=== PATIENT | female | born 1985 | race Caucasian/White ===

== ENCOUNTER 2017-02-22 12:49 | Emergency (ER) ==
[2017-02-22 12:52] VITALS: BP 123/74; TEMP 98.5; BMI 35.4
[2017-02-22] MEDS ORDERED: TORADOL IM STA (13:22)
--- NOTE | 2017-02-22 13:51 | DI ---
EXAM: Left elbow; AP, lateral, and oblique views HISTORY: Trauma COMPARISON: Forearm radiographs from same day. FINDINGS: An interarticular minimally-displaced fracture of the radial head is present. No evidence of dislocation is seen. No sizable elbow joint effusion is seen. Soft tissues appear unremarkable . OPINION: Minimally-displaced interarticular radial head fracture.
--- NOTE | 2017-02-22 13:52 | DI ---
EXAM: Two views of the left forearm. HISTORY: Trauma COMPARISON: Elbow radiographs from same day. FINDINGS: An interarticular minimally-displaced fracture of the radial head is present. No evidence of dislocation is seen. No sizable elbow joint effusion is seen. Soft tissues appear unremarkable . OPINION: Minimally-displaced interarticular radial head fracture.
--- NOTE | 2017-02-22 13:53 | DI ---
EXAM: Left wrist; PA, lateral, and oblique views HISTORY: Trauma. COMPARISON: For radiographs from same day. FINDINGS: There is no acute fracture or dislocation. Joint spaces and alignment are maintained. Soft tissues are unremarkable. OPINION: No acute osseous abnormality of the wrist.
[2017-02-22] MEDS ORDERED: LIDOCAINE 1 % AMP 5 ML (SUTURES) SQ STA (14:38)
--- NOTE | 2017-02-22 15:38 | ED.PDOC ---
General ED Provider: Dr. AJIT FERRARO Chief Complaint: Fall Stated Complaint: Patient is a 31 year old who state that she tripped over pole and fell landed on left elbow, while in the Er she noticed that she had a splinter on her left buttock. Time Seen by Physician: 12:55 Mode of Arrival: Walk-In Information Source: Patient Exam Limitations: No limitations Primary Care Provider: ROLANDO GUIDO Nursing and Triage Documentation Reviewed and Agree: Yes Trauma/Injury Complaint Exam - Trauma Complaint/Exam Location of Pain or Injury: Reports: LUE, Other (buttocks ) Mechanism of Injury: Reports: Fall Onset/Duration: 1 hour Symptoms Are: Still present Timing of Treatment: Immediate Initial Severity: Severe Current Severity: Severe Character: Reports: Dull, Aching Aggravating: Reports: Movement Alleviating: Reports: Rest Associated Signs and Symptoms: Denies: LOC, Confusion, Memory loss, Lethargy, Vomiting, Bleeding, Bruising, Swelling, Extremity disuse, Painful respiration, Hoarseness, Dysphagia, Hemoptysis, Significant blood loss Related History: Denies: Similar episode, Occupational injury : No Penetrating Injury Risk Factors: Reports: None Nexus Low Risk Criteria: No post-midline CS tender, No evidence of intoxicat., No Altered LOC, No focal neuro deficit, No distracting injuries Compartment Syndrome Risk Factors: Present: Pain Trauma Findings: Present: Limited ROM (left elbow ). Absent: [place] eyes, Hemotympanum, Nasal deformity, Dental tenderness Skin Findings: Present: Tenderness Differential Diagnoses: Abrasion, Contusions, Fracture, Sprain, Strain Body Picture: 1 - tenderness to palpation 2 - Long 2 cm splinter well embeded in the flesh. Review of Systems - Review Of Systems Constitutional: Reports: No symptoms Eyes: Reports: No symptoms Ears, Nose, Mouth, Throat: Reports: No symptoms Respiratory: Reports: No symptoms Cardiac: Reports: No symptoms GI: Reports: No symptoms : Reports: No symptoms Musculoskeletal: Reports: Joint pain (left elbow) Skin: Reports: Bruising (left buttock ) Neurological: Reports: Anxiety Endocrine: Reports: No symptoms Hematologic/Lymphatic: Reports: No symptoms All Other Systems: Reviewed and Negative Past Medical History - Past Medical History Endocrine: Reports: Hypothyroid Cardiovascular: Reports: None Respiratory: Reports: None Hematological: Reports: None Gastrointestinal: Reports: None Genitourinary: Reports: None Neuro/Psych: Reports: Anxiety, Depression Musculoskeletal: Reports: None Cancer: Reports: None Last Menstrual Period: doesnt have - Surgical History General Surgical History: Reports: Tonsillectomy - Family History Family History: Reports: Unknown - Social History Smoking Status: Current every day smoker Hx Substance Use: No Alcohol Screening: None Physical Exam - Physical Exam Appearance: Ill-appearing, Obese Ill-appearing: Mild Pain Distress: Severe Eyes: LUCERO, EOMI, Conjunctiva clear Neck: Supple Respiratory: Airway patent, Breath sounds clear, Breath sounds equal, Respirations nonlabored Cardiovascular: RRR, Pulses normal, No rub, No murmur GI/: Soft, Nontender, No masses, Bowel sounds normal, No Organomegaly Musculoskeletal: ROM intact, No edema, No calf tenderness, Limited ROM Skin: Warm, Dry, Normal color Neurological: Sensation intact, Motor intact, Reflexes intact, Cranial nerves intact, Alert, Oriented Psychiatric: Anxious Interpretation - Radiology Interpretation Radiology Interpretation By: ED Physician Radiology Results: Positive Exam Interpreted: Other (non displaced fracture of radial head. ) Radiology Interpretation By: Radiologist Radiology Results: Negative Exam Interpreted: Other (Hip, no obvious foreign body ) Procedures - Foreign Body Removal Location of Foreign Object: Left buttock Foreign Object: 6 cm Depth of Object: 4 cm Type of Anesthesia: Local Medication Used: Yes: Lidocaine Prep: Betadine Irrigation: Yes Skin Incised: Yes Instruments Used: Yes: Forceps Foreign Body Identified and Removed: Yes (wooden splinter. ) Critical Care Note - Critical Care Note Total Time (mins): 0 Course - Course Orders, Labs, Meds: Orders Category Date Time Status Ketorolac Tromethamine [Toradol] MEDS 02/22/17 13:22 Discontinued 60 mg IM ONCE STA Lidocaine HCl/Pf [Lidocaine 1 % Amp 5 ml (Sutures)] MEDS 02/22/17 14:38 Discontinued 5 ml SQ ONCE STA ELBOW, LEFT MIN 3 VIEWS Stat RADS 02/22/17 13:22 Completed FOREARM, LEFT 2 VIEWS Stat RADS 02/22/17 13:22 Completed PELVIS 1 OR 2 VIEWS Stat RADS 02/22/17 14:38 Taken WRIST, LEFT 3 VIEWS Stat RADS 02/22/17 13:22 Completed Medications Discontinued Medications Generic Name Dose Route Start Last Admin Trade Name Freq PRN Reason Stop Dose Admin Ketorolac Tromethamine 60 mg 02/22/17 13:22 02/22/17 13:44 Toradol IM 02/22/17 13:23 60 mg ONCE STA Administration Lidocaine HCl 5 ml 02/22/17 14:38 02/22/17 15:30 Lidocaine 1 % Amp 5 Ml (Sutures) SQ 02/22/17 14:39 5 ml ONCE STA Administration Vital Signs: Temp Pulse Resp BP Pulse Ox 02/22/17 12:49 98.5 F 95 H 18 123/74 97 Departure - Departure Time of Disposition: 15:38 Disposition: HOME SELF-CARE Discharge Problem: Foreign body (FB) in soft tissue Radial head fracture, closed Qualifiers: Encounter type: initial encounter Fracture alignment: displaced Laterality: left Qualifier Code: (S52.122A) Displaced fracture of head of left radius, initial encounter for closed fracture Instructions: Soft Tissue Foreign Body (ED), Elbow Fracture (ED) Condition: Fair Pt referred to PMD for follow-up: Yes Additional Instructions: Continue home medications Follow up with Orthopedics in 2 days Allergies/Adverse Reactions: Allergies No Known Allergies Allergy (Verified 02/22/17 12:52) Home Medications: Ambulatory Orders Albuterol Sulfate 0.042% Neb [Albuterol 0.042% Neb] 1 vial IH Q2-6H PRN Alprazolam [Xanax] 0.5 mg PO QID 03/20/13 Fluoxetine HCl [Prozac] 40 mg PO DAILY 03/20/13 Hydrocodone Bit/Acetaminophen [[place] 5-325] 1 each PO TID PRN 02/22/17 Disposition Discussed With: Patient
--- NOTE | 2017-02-22 18:12 | DI ---
EXAM: Two views of the pelvis. History: Foreign body of buttocks. Findings / impression: No acute fracture or dislocation. Joint spaces are relatively preserved. N o distinct radiopaque foreign bodies are seen within the region of interest. Nonspecific pelvic florentin cifications are probably phleboliths.
== END 2017-02-22 16:07 | disposition home or self-care (01) ==
LOC: ED 12:49
DX: M79.5 Residual foreign body in soft tissue (principal); S52.122A Displaced fracture of head of left radius, initial encounter for closed fracture; W01.0XXA Fall on same level from slipping, tripping and stumbling without subsequent striking against object, initial encounter; F17.210 Nicotine dependence, cigarettes, uncomplicated
CPT/HCPCS: 96372; 99283

== ENCOUNTER 2017-06-05 13:49 | Outpatient (RCR) ==
--- NOTE | 2017-06-06 13:41 | RS.OPPTEV2 ---
Date of Note: 06/05/17 Visit #: 1 Date of Evaluation: 06/05/17 Payer Source: Medicaid Date of Onset/Injury/Change in Status: 02/18/17 Surgery Performed?: No Procedure Performed: pt had a cast for 4 weeks Date of Procedure: 02/18/17 Treatment Diagnosis: fx of head of L radius, closed fx History of Condition/Mechanism of Injury:: pt suffered a fall anf fx of L radial head and had a cast placed on for 4 weeks. Prior Level of Function.....Patient was independent with: ADL's, Self Care, Work /Vocation, Caregiving, Ambulation/Mobility, Community Integration/Access Functional Limitations: Reaching, Pushing, Pulling, Lifting, Carrying Current Subjective/complaints:: pt states she is concerned because she still can 't use her arm. She states she has difficulty carrying groceries or picking up anything. pt states she also has chronic cervical pain for which she has been on the waiting list to get in to [facility] in [place]. Treatment Side (optional): Left Medical History Medical History: Hypertension Medical History Comments:: anxiety, depressive disorder, shld pain, neck pain, back pain Smoking Status: Current every day smoker Diagnostic Testing/Imaging:: closed fx of L radial head Hx Home Medications: albuterol sulfate HFA, hydrocodone, ibuprofen, prozac, soma , xanax, zantac Patient's Goals: to be able to use my arm again. Pain Assessment - Pain Description Pain Location: L elbow Pain Description: Aching Current Pain Intensity: 1 Worst Pain Intensity: 4 Other Comments regarding Pain:: pt also c/o pain in cervical spine 4/10 with tenderness, trigger points noted in upper trap and cervical paraspinals. Functional Outcome Measure UE Functional Index: 49 (39%) - G Codes & Severity Modifier G Codes & Modifier: n/a Source of G Code score: n/a Observation - Observation Posture: Forward Head, Rounded Shoulders Handedness: Right Girth Measurement Upper: no edema noted to L UE Gait - Gait Pattern General Gait Pattern Observation: No Deviations/Normal Gait Comments: patient with normal gait General Range of Motion: RUE and BLE WFL's. Cervical ROM WFL's with pain. Muscle Strength: RUE 5/5, BLE 5/5 - ROM Cervical Spine Range of Motion Limitations: Soft Tissue Tightness, Pain Elbow ROM: Right WFL's Elbow Muscle Strength: Right WFL's - Left Elbow ROM Left Elbow Extension: -21 Left Elbow Flexion: 120 Left Elbow ROM Limitations: Soft Tissue Tightness, Muscle Weakness, Pain - Left Elbow Strength Left Elbow Extension: 2+ Poor+ Left Elbow Flexion: 3 Fair Left Forearm Pronation: 3 Fair Left Forearm Supination: 3 Fair Wrist ROM: Bilaterally WFL's Wrist Muscle Strength: Right WFL's - Left Wrist Strength Left Wrist Extension: 4- Good- Left Wrist Flexion: 3+ Fair+ Left Wrist Radial Deviation: 3+ Fair+ Left Wrist Ulnar Deviation: 3+ Fair+ Left Forearm Pronation: 3+ Fair+ Left Forearm Supination: 3+ Fair+ - Windows 7 Deployment Lead Strength Left Windows 7 Deployment Lead Strength: 11 Right Windows 7 Deployment Lead Strength: 23 Palpation Palpation Findings: Tenderness Comments:: L elbow tenderness with palpation Sensation - Sensation Right Upper Extremity: Intact/Normal Left Upper Extremity: Intact/Normal Right Lower Extremity: Intact/Normal Left Lower Extremity: Intact/Normal Sensation Description: Within Normal Limits Balance - Sitting Balance Static Sitting Balance: Normal Dynamic Sitting Balance: Normal - Standing Balance Static Standing Balance: Normal Dynamic Standing Balance: Normal - Treatment Modality: hot pack Treatment Area: L elbow Patient Position: Sitting Interventions - Exercise/Activities/Manual Therapy Exercises/Activities: gentle stretching into extension with elbow on pillow, as well as hand squeezes with ball and pinching ball. pt also performed elbow flex /ext and instructed could use can of vegetables at home for weight. Total minutes of Exercise: 15 Manual Therapy: n/a HOME EXERCISE PROGRAM: written HEP given with wrist flex/ext, hand squeezes, elbow flex, and gentle stretching in ext with LUE and instructed to use heat prior to stretching and ice after. pt states she cannot tolerate the ice. - Charges Total Direct Minutes: 53 Total Treatment Time: 53 Procedures billed for this date of service:: eval 3 Assessment Assessment: pt presents with decreased ROM L elbow s/p radius fx. pt also presents with decreased strength and coordination of LUE. Patient Education: Home Exercise Program, Education of Plan of Care Rehab Potential: Good Short Term Goals Goal #1: pt demonstrate improved ROM L elbow ext -10, flex 125 Goal to be met by: 06/20/17 Goal #2: pt with improved strength L biceps 4-/5, triceps 3-/5, pron/sup 4-/5 Goal to be met by: 06/20/17 Assisted Goals Goal #1: pt demonstrate improved L elbow ROM to WFL's with decreased pain Goal to be met by: 07/06/17 Goal #2: pt with improved LUE strength flex 4/5, elbow flex/ext 4/5,pron/sup 4/5 Goal to be met by: 07/06/17 Goal #3: pt independent with HEP to allow to maintain functional gains Goal to be met by: 07/06/17 Plan - Treatment to be Provided Procedures: Therapeutic Exercises, Therapeutic Activity Modalities: Electrical Stimulation, Hot Packs - Treatment Plan Frequency: 2 X week Duration: 4 weeks ORDER # VISITS AND/OR THROUGH DATE: 1 - Treatment Code (1) Elbow pain Code(s): M25.529 - PAIN IN UNSPECIFIED ELBOW Qualifiers: Laterality: left Qualified Code(s): M25.522 - Pain in left elbow (2) Joint stiffness Code(s): M25.60 - STIFFNESS OF UNSPECIFIED JOINT, NOT ELSEWHERE CLASSIFIED (3) Closed displaced fracture of head of left radius Code(s): S52.122A - DISP FX OF HEAD OF LEFT RADIUS, INIT FOR CLOS FX Qualifiers: Encounter type: initial encounter Qualified Code(s): S52.122A - Displaced fracture of head of left radius, initial encounter for closed fracture
== END 2017-06-07 ==
PROVIDERS: ATTEND Nurse Practitioner Family
DX: S52.121D Displaced fracture of head of right radius, subsequent encounter for closed fracture with routine healing (principal)

== ENCOUNTER 2017-10-01 19:41 | Emergency (ER) ==
[2017-10-01 19:44] VITALS: BP 126/85; TEMP 99.6; BMI 38.0
--- NOTE | 2017-10-01 21:17 | CT ---
EXAM: CT head without contrast HISTORY: Headache COMPARISON: CT head from 06/06/2015 TECHNIQUE: Helical axial CT of the head was performed without contrast. Coronal and sagittal reconstr uctions were performed. FINDINGS: There is no acute intracranial abnormality. There is no hemorrhage, mass, midline shift, abnormal ex tra-axial fluid collection, hydrocephalus or evolving ischemia. The rasheed-white matter junction is wel l maintained. Brain parenchyma, ventricles and sulci are normal. There are no acute calvarial lesions. Visualized orbits and globes are unremarkable. The mastoid ai r cells demonstrate no significant soft tissue opacification. The visualized paranasal sinuses show n o air-fluid levels. IMPRESSION: Stable head CT with no acute intervening abnormality
[2017-10-01] MEDS ORDERED: PHENERGAN 25 MG/ML VIAL IM STA (21:19)
[2017-10-01] MEDS ORDERED: TORADOL IM STA (21:19)
[2017-10-01] MEDS ORDERED: DILAUDID 1 MG/ML SYRINGE IM STA (21:19)
--- NOTE | 2017-10-01 21:52 | ED.PDOC ---
General ED Provider: Dr. IKE STILL-ER Chief Complaint: Headache Stated Complaint: heaven had a lerner for 8 days Time Seen by Physician: 19:45 Mode of Arrival: Walk-In Information Source: Patient Exam Limitations: No limitations Primary Care Provider: ROLANDO GUIDO Nursing and Triage Documentation Reviewed and Agree: Yes Reviewed sepsis parameters & appropriate labs ordered?: Yes System Inflammatory Response Syndrome: Not Applicable Sepsis Protocol: For patient's 13 years and over: Temp is 96.8 and below OR 101 and greater Pulse >90 BPM Resp >20/minute Acutely Altered Mental Status Are patient's symptoms suggestive of a new infection, such as: -Pneumonia -Skin, Soft Tissue -Endocarditis -UTI -Bone, Joint Infection -Implantable Device -Acute Abdominal Infection -Wound Infection -Meningitis -Blood Stream Catheter Infection -Unknown Neurological Complaint Exam - Headache Complaint/Exam Onset: Gradual Duration: 9 days Symptoms Are: Still present Timing: Intermittent Episodes Lasting: Days Worst Headache Ever: No Initial Severity: Mild Current Severity: Moderate Location: Right Character: Reports: Dull, Throbbing Aggravating: Reports: Bright lights Alleviating: Reports: None Associated Signs and Symptoms: Reports: Nausea. Denies: Dizziness, Seizure, Vomiting, Sinus pressure, Fever, Neck pain, Neck stiffness, Decreased LOC, Visual changes Related History: Reports: Similar episode Related Surgical History: Reports: None SAH Risk Factors: Reports: None Meningitis Risk Factors: Reports: None Temporal Arteritis Risk Factors: Reports: Female, Normal Head CT Within Last 12 Months: No Fundoscopic Exam: Present: Normal Findings Papilledema Present: No Temporal Artery Tenderness: Present: None Sinus Tenderness: Present: None TMJ Tenderness: Present: None Glascow Coma Scale (see protocol): 15 min Meningeal Signs Positive: No Pain on Passive Flexion-Positive Kernig's: No ROM Limited In: No Limitiations Focal Weakness: Present: None Focal Sensory Loss: Present: None Gait: Normal Nystagmus Present: No Gag Reflex Present: Yes [id number]: Normal Findings Romberg Test Positive: No Babinski Sign: Negative Right, Negative Left Heel to Toe Normal: Yes Differential Diagnoses: Migraine Review of Systems - Review Of Systems Constitutional: Reports: No symptoms Eyes: Reports: No symptoms Ears, Nose, Mouth, Throat: Reports: No symptoms Respiratory: Reports: No symptoms Cardiac: Reports: No symptoms GI: Reports: No symptoms : Reports: No symptoms Musculoskeletal: Reports: No symptoms Skin: Reports: No symptoms Neurological: Reports: Headache Endocrine: Reports: No symptoms Hematologic/Lymphatic: Reports: No symptoms All Other Systems: Reviewed and Negative Past Medical History - Past Medical History Previously Healthy: No Endocrine: Reports: Hypothyroid Cardiovascular: Reports: None Respiratory: Reports: None Hematological: Reports: None Gastrointestinal: Reports: None Genitourinary: Reports: None Neuro/Psych: Reports: Anxiety, Depression Musculoskeletal: Reports: None Cancer: Reports: None Last Menstrual Period: 1 1/2 years ago patient had ablasion done - Surgical History General Surgical History: Reports: Tonsillectomy - Family History Family History: Reports: Unknown - Social History Smoking Status: Current every day smoker Hx Substance Use: No Alcohol Screening: None Physical Exam - Physical Exam Appearance: Well-appearing, No pain distress, Well-nourished Pain Distress: Moderate Eyes: LUCERO, EOMI, Conjunctiva clear ENT: Ears normal, Nose normal, Oropharynx normal Neck: Supple Respiratory: Airway patent, Breath sounds clear, Breath sounds equal, Respirations nonlabored Cardiovascular: RRR, Pulses normal, No rub, No murmur GI/: Soft, Nontender, No masses, Bowel sounds normal, No Organomegaly Musculoskeletal: Normal strength, ROM intact, No edema, No calf tenderness Skin: Warm, Dry, Normal color Neurological: Sensation intact, Motor intact, Reflexes intact, Cranial nerves intact, Alert, Oriented Psychiatric: Affect appropriate, Mood appropriate, Anxious Interpretation - Radiology Interpretation Radiology Interpretation By: Radiologist Radiology Results: Negative Exam Interpreted: CT Scan Re-Evaluation - Re-Evaluation Time of Re-Evaluation: 22:06 Status: Improved Vital Signs Stable: Yes Pain Level: 1 Appearance: NAD Lungs: Clear Skin: Warm and Dry Neuro: Alert and Oriented X3 CV: RRR Critical Care Note - Critical Care Note Total Time (mins): 0 Course - Course Hematology/Chemistry: 10/01/17 20:00 10/01/17 20:01 Orders, Labs, Meds: Lab Review 10/01/17 10/01/17 10/01/17 20:00 20:00 20:00 WBC 10.55 H RBC 4.99 Hgb 16.1 H Hct 46.6 MCV 93.4 MCH 32.3 H MCHC 34.5 RDW Coeff of Jonn 12.3 Plt Count 254 Immature Gran % (Auto) 0.4 Neut % (Auto) 56.6 Lymph % (Auto) 28.9 Fallon % (Auto) 5.2 Eos % (Auto) 8.0 H Baso % (Auto) 0.9 Immature Gran # (Auto) 0.0 Neut # 6.0 Lymph # 3.1 Fallon # 0.6 Eos # 0.8 H Baso # 0.1 ESR 7 Sodium Potassium Chloride Carbon Dioxide Anion Gap BUN Creatinine Estimated GFR (MDRD) BUN/Creatinine Ratio Glucose Calcium Total Bilirubin AST ALT Alkaline Phosphatase Total Protein Albumin Globulin Albumin/Globulin Ratio Serum , Qual Negative Influenza A (Rapid) Negative by naat Influenza B (Rapid) Negative by naat 10/01/17 20:01 WBC RBC Hgb Hct MCV MCH MCHC RDW Coeff of Jonn Plt Count Immature Gran % (Auto) Neut % (Auto) Lymph % (Auto) Fallon % (Auto) Eos % (Auto) Baso % (Auto) Immature Gran # (Auto) Neut # Lymph # Fallon # Eos # Baso # ESR Sodium 143 Potassium 4.0 Chloride 111 H Carbon Dioxide 23 Anion Gap 13.0 BUN 8 Creatinine 0.79 Estimated GFR (MDRD) 84.00 BUN/Creatinine Ratio 10.12 Glucose 104 Calcium 9.6 Total Bilirubin 0.4 AST 22 ALT 51 Alkaline Phosphatase 121 H Total Protein 7.5 Albumin 3.6 Globulin 3.9 Albumin/Globulin Ratio 0.92 Serum , Qual Influenza A (Rapid) Influenza B (Rapid) Orders Category Date Time Status CBC W/ AUTO DIFF Stat LAB 10/01/17 20:00 Completed COMPREHENSIVE METABOLIC PANEL Stat LAB 10/01/17 20:01 Completed ESR Stat LAB 10/01/17 20:00 Completed FLU A/B MOLECULAR Stat LAB 10/01/17 20:00 Completed MOLECULAR GROUP A STREP Stat LAB 10/01/17 20:00 Completed SERUM Stat LAB 10/01/17 20:00 Completed Hydromorphone HCl [Dilaudid 1 mg/ml Syringe] MEDS 10/01/17 21:19 Discontinued 1 mg IM ONCE STA Ketorolac Tromethamine [Toradol] MEDS 10/01/17 21:19 Discontinued 60 mg IM ONCE STA Promethazine HCl [Phenergan 25 mg/ml Vial] MEDS 10/01/17 21:19 Discontinued 25 mg IM ONCE STA CT HEAD W/O CONTRAST Stat RADS 10/01/17 19:47 Completed Medications Discontinued Medications Generic Name Dose Route Start Last Admin Trade Name Kehinde PRN Reason Stop Dose Admin Hydromorphone HCl 1 mg 10/01/17 21:19 10/01/17 21:31 Dilaudid 1 Mg/Ml Syringe IM 10/01/17 21:20 1 mg ONCE STA Administration Ketorolac Tromethamine 60 mg 10/01/17 21:19 10/01/17 21:25 Toradol IM 10/01/17 21:20 60 mg ONCE STA Administration Promethazine HCl 25 mg 10/01/17 21:19 10/01/17 21:30 Phenergan 25 Mg/Ml Vial IM 10/01/17 21:20 25 mg ONCE STA Administration Vital Signs: Temp Pulse Resp BP Pulse Ox 10/01/17 19:42 99.6 F 90 20 126/85 97 Departure - Departure Time of Disposition: 22:06 Disposition: HOME SELF-CARE Discharge Problem: Migraine headache Qualifiers: Migraine type: other Status migrainosus presence: without status migrainosus Intractability: not intractable Qualified Code(s): G43.809 - Other migraine, not intractable, without status migrainosus Instructions: Migraine Headache (ED) Condition: Good Pt referred to PMD for follow-up: Yes IPMP verified?: No Additional Instructions: f/u with pcp Allergies/Adverse Reactions: Allergies No Known Allergies Allergy (Verified 10/01/17 19:44) Home Medications: Ambulatory Orders Albuterol Sulfate 0.042% Neb [Albuterol 0.042% Neb] 1 vial IH Q2-6H PRN Alprazolam [Xanax] 0.5 mg PO QID 03/20/13 Fluoxetine HCl [Prozac] 40 mg PO DAILY 03/20/13 Hydrocodone Bit/Acetaminophen [[place] 5-325] 1 each PO TID PRN 02/22/17 Ranitidine HCl [Zantac] 150 mg PO BIDAC 10/01/17 Disposition Discussed With: Patient
== END 2017-10-01 22:11 | disposition home or self-care (01) ==
LOC: ED 19:41
DX: G43.809 Other migraine, not intractable, without status migrainosus (principal); E03.9 Hypothyroidism, unspecified; F17.210 Nicotine dependence, cigarettes, uncomplicated
CPT/HCPCS: 36415; 80053; 84703; 85025; 85651; 87502; 87651; 96372; 99283

== ENCOUNTER 2017-12-10 12:30 | Outpatient (CLI) ==
--- NOTE | 2017-12-10 15:00 | DI ---
EXAM: Chest two views HISTORY: Acute upper respiratory infection COMPARISON: None TECHNIQUE: Two views of the chest were performed FINDINGS: The lungs are clear. There is no pleural effusion or pneumothorax. The heart is normal i n size. The mediastinal contour is normal. There are no acute abnormalities of the bones. Rounded m etallic density appears to project in the anterior soft tissues of the left thorax. IMPRESSION: 1. No acute cardiopulmonary process. 2. Rounded metallic density appears to project in the anterior soft tissues of the left thorax. Vinnie mmend clinical correlation.
== END 2017-12-10 12:31 | disposition home or self-care (01) ==
LOC: RAD 12:30
PROVIDERS: ATTEND Emergency Medicine
DX: J06.9 Acute upper respiratory infection, unspecified (principal); R68.89 Other general symptoms and signs
CPT/HCPCS: 87804

== ENCOUNTER 2019-04-28 13:00 | Outpatient (RCR) ==
[2017-12-10 12:33] VITALS: BMI 38.0
--- NOTE | 2019-04-15 14:03 | RS.OPPTDN ---
Subjective Date of Note: 04/15/19 Visit #: 2 Number of visits approved by Insurance: pending Date of Evaluation: 04/06/19 Payer Source: Medicaid Treatment Diagnosis: cervical pain, radicular symptoms into RUE, muscle tightness Current Subjective/complaints:: Patient reports the R UE and hand feels numb currently ,along with the cercvical pain. *Precautions: n/a Pain Assessment - Pain Description Pain Location: cervical and R UE Pain Description: Radiating, Dull, Aching, Chronic Current Pain Intensity: 4/10 - Treatment Modality: Ultrasound Parameters/Method Applied: 10 mins. @ 1.5 w/cm2 ,cont. mode to cervical /UT's Patient Position: Sitting - Heat/Cryotherapy Treatment: Hot Pack (20 mins. prior to US and traction) - Traction Treatment Method: Mechanical, Intermittent, Cervical Patient Position: Supine Amount of Force Applied: 13 # Hold Time: 30 secs. Rest Time: 5 secs. Duration of treatment: 10 mins. Interventions - Exercise/Activities/Manual Therapy Exercises/Activities: HEP review while on traction. Total minutes of Exercise: 0 Manual Therapy: n/a Total minutes of Manual Therapy: 0 HOME EXERCISE PROGRAM: pt given written HEP including: upper trap stretch, cervical retraction, scapular retraction, as well as corner stretch. - Charges Timed Code Treatment Minutes: 10 Total Treatment Time: 40 Procedures billed for this date of service:: hp,US,traction Assessment: Patient reports relief after modalities and traction today.She is compliant to HEP,very motivated to improve.She reports being able to feel the warmth from US in the muscle belly of upper traps,,but cannot feel the warmth on either side of the neck. Patient Education: Body/Joint mechanics, Home Exercise Program, Activity Modification, Education of Plan of Care Patient demonstrates compliance with HEP?: Yes Short Term Goals Goal #1: pt independent with initial HEP Goal to be met by: 04/23/19 Progress towards Goal:: Progressing Goal #2: Decrease cervical pain < 5/10 with activity Goal to be met by: 04/23/19 Progress towards Goal:: Progressing Goal #3: Improve cervical ROM WFL's Goal to be met by: 04/23/19 Goal #4: pt with decreased muscle tightness R upper trap Goal to be met by: 04/23/19 [employer] Production Manager Goals Goal #1: pt with no radicular symptoms noted in RUE Goal to be met by: 05/07/19 Goal #2: pt able to sleep > 4 hours uninterrupted by pain Goal to be met by: 05/07/19 Goal #3: Decrease cervical pain < 3/10 Goal to be met by: 05/07/19 Goal #4: pt able to perform normal daily activities with less pain Goal to be met by: 05/07/19 Plan Dates of Alf Goals: 05/07/19 Expiration date of current Insurance Approval:: 05/07/19 PLAN: Cont. skilled PT to reduce /elminate cervcial pain /radiculopathy.
--- NOTE | 2019-04-20 15:35 | RS.OPPTDN ---
Subjective Date of Note: 04/20/19 Visit #: 3 Number of visits approved by Insurance: pending Date of Evaluation: 04/06/19 Payer Source: Medicaid Treatment Diagnosis: cervical pain, radicular symptoms into RUE, muscle tightness Current Subjective/complaints:: Patient reports she still has tingling into the entire R UE today,but her neck feels significantly better.She reports the chin tucks cause her some pain.Recommended for her to try without retraction of the C -spine,but if pain is still present ,do not do this motion. *Precautions: n/a Pain Assessment - Pain Description Pain Location: cervical /R UE Pain Description: Radiating, Dull, Aching Pain Description: minimal today Current Pain Intensity: not rated - Treatment Modality: Ultrasound Parameters/Method Applied: 10 mins. @ 1.5 w/cm2, cont. mode to cervical/UT's area. Patient Position: Sitting - Heat/Cryotherapy Treatment: Hot Pack (20 mns. prior to US and traction) - Traction Treatment Method: Mechanical, Intermittent, Cervical Patient Position: Supine Amount of Force Applied: 14 # Hold Time: 30 secs. Rest Time: 5 secs. Duration of treatment: 15 mins. Traction Treatment Comment: Tolerated well. Interventions - Exercise/Activities/Manual Therapy Exercises/Activities: HEP review while on traction. Total minutes of Exercise: 0 Manual Therapy: n/a Total minutes of Manual Therapy: 0 HOME EXERCISE PROGRAM: pt given written HEP including: upper trap stretch, cervical retraction, scapular retraction, as well as corner stretch. - Charges Timed Code Treatment Minutes: 10 Total Treatment Time: 45 Procedures billed for this date of service:: hp,US,traction Assessment: Patient reports less intensity of cervical pain today.She does have radiculopathy in the R E.She is compliant to HEP.She also reports trying to work less hours (decreased from 65 hrs./ wk to 32 hrs./wk ) to assist with her symptoms. Patient Education: Body/Joint mechanics, Home Exercise Program Comments: Reminded to do HEP in PAIN FREE ROM. Patient demonstrates compliance with HEP?: Yes Short Term Goals Goal #1: pt independent with initial HEP Goal to be met by: 04/23/19 Progress towards Goal:: Progressing Goal #2: Decrease cervical pain < 5/10 with activity Goal to be met by: 04/23/19 Progress towards Goal:: Progressing Goal #3: Improve cervical ROM WFL's Goal to be met by: 04/23/19 Progress towards Goal:: Progressing Goal #4: pt with decreased muscle tightness R upper trap Goal to be met by: 04/23/19 Alf Goals Goal #1: pt with no radicular symptoms noted in RUE Goal to be met by: 05/07/19 Progress towards goal: No Change Goal #2: pt able to sleep > 4 hours uninterrupted by pain Goal to be met by: 05/07/19 Goal #3: Decrease cervical pain < 3/10 Goal to be met by: 05/07/19 Goal #4: pt able to perform normal daily activities with less pain Goal to be met by: 05/07/19 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 skilled PT to reduce /eliminate cervical pain ,and improve cervical motion
--- NOTE | 2019-04-22 15:43 | RS.OPPTDN ---
Subjective Date of Note: 04/22/19 Visit #: 4 Number of visits approved by Insurance: pending Date of Evaluation: 04/06/19 Payer Source: Medicaid Treatment Diagnosis: cervical pain, radicular symptoms into RUE, muscle tightness Current Subjective/complaints:: Patient reports hurting more today,feels the tingling into the R UE is unchanged .We discussed the POC for today,hold the traction to assess her pain at next session. *Precautions: n/a Pain Assessment - Pain Description Pain Location: cervical /R UE Pain Description: Radiating, Dull, Aching, Chronic Current Pain Intensity: 5 - Treatment Modality: Ultrasound Parameters/Method Applied: 10 mins. @ 1.5 w/cm2,cont. mode to cervical/both UT' s. Patient Position: Sitting - Heat/Cryotherapy Treatment: Hot Pack (20 mins. prior to US) Interventions - Exercise/Activities/Manual Therapy Exercises/Activities: 30 mins. total ,in supine for chin tucks,cervical retraction,rotation to L and R ,lateral flexion to L and R,UT stretches, intermittent distraction to C-spine ,instruction in gravity assisted stretches for reducing the forward head position. Total minutes of Exercise: 30 Manual Therapy: n/a Total minutes of Manual Therapy: 0 HOME EXERCISE PROGRAM: pt given written HEP including: upper trap stretch, cervical retraction, scapular retraction, as well as corner stretch. - Charges Timed Code Treatment Minutes: 30 Total Treatment Time: 60 Procedures billed for this date of service:: hp,ex2 ,US Assessment: Patient has moderate tightness in the R UT ,as compared to the L.She has functional cervical ROM passively .Lateral cervical flexion t the L elicits radiculopathy into the R UE today.She also has increased pain when cervical retraction is combined with chin tucks.She is attentive and motivated to improve. Patient Education: Body/Joint mechanics, Home Exercise Program, Education of Plan of Care Patient demonstrates compliance with HEP?: Yes Short Term Goals Goal #1: pt independent with initial HEP Goal to be met by: 04/23/19 Progress towards Goal:: Met Goal #2: Decrease cervical pain < 5/10 with activity Goal to be met by: 04/23/19 (5 today,4 two sessions ago) Progress towards Goal:: Progressing Goal #3: Improve cervical ROM WFL's Goal to be met by: 04/23/19 Progress towards Goal:: Progressing Goal #4: pt with decreased muscle tightness R upper trap Goal to be met by: 04/23/19 Progress towards Goal:: Progressing Nursing Home Goals Goal #1: pt with no radicular symptoms noted in RUE Goal to be met by: 05/07/19 Progress towards goal: No Change Goal #2: pt able to sleep > 4 hours uninterrupted by pain Goal to be met by: 05/07/19 Goal #3: Decrease cervical pain < 3/10 Goal to be met by: 05/07/19 Goal #4: pt able to perform normal daily activities with less pain Goal to be met by: 05/07/19 Progress towards goal: Progressing Plan Dates of Nursing Home Goals: 05/07/19 Expiration date of current Insurance Approval:: 05/07/19 PLAN: Cont. skilled PT to reduce/elimiate cervical pain,further educate patient in cervical joint protection.
--- NOTE | 2019-04-28 14:07 | RS.OPPTDN ---
Subjective Date of Note: 04/28/19 Visit #: 5 Number of visits approved by Insurance: pending Date of Evaluation: 04/06/19 Payer Source: Medicaid Treatment Diagnosis: cervical pain, radicular symptoms into RUE, muscle tightness Current Subjective/complaints:: Patient reports her neck feels much better.She has no radiating pain onto UE's today.She reports tingling in the hands ,but has been to her DrJacky , and feels this may be carpal tunnel syndrome. *Precautions: n/a Pain Assessment - Pain Description Pain Location: cervical Pain Description: Dull, Aching Current Pain Intensity: 0 at rest - Treatment Modality: Ultrasound Parameters/Method Applied: 10 mins. @ 1.5 w/cm2 , cont. mode to cervical/UT's. Patient Position: Sitting - Heat/Cryotherapy Treatment: Hot Pack (20 mins. prior to US and traction) - Traction Treatment Method: Mechanical, Intermittent, Cervical Patient Position: Supine Amount of Force Applied: 15# Hold Time: 30 secs. Rest Time: 5 secs. Duration of treatment: 20 mins. Interventions - Exercise/Activities/Manual Therapy Exercises/Activities: 10 mins. total ,in supine for chin tucks,cervical retraction,rotation to L and R ,lateral flexion to L and R. Total minutes of Exercise: 10 Manual Therapy: n/a Total minutes of Manual Therapy: 0 HOME EXERCISE PROGRAM: pt given written HEP including: upper trap stretch, cervical retraction, scapular retraction, as well as corner stretch. - Charges Timed Code Treatment Minutes: 20 Total Treatment Time: 60 Procedures billed for this date of service:: hp,US,ex,[id number] Assessment: Patient continues to progress well,has improved functional cervical motion ,has no pain currently.She is motivated to improve,is compliant to HEP. Patient Education: Education of Plan of Care Patient demonstrates compliance with HEP?: Yes Short Term Goals Goal #1: pt independent with initial HEP Goal to be met by: 04/23/19 Progress towards Goal:: Met Goal #2: Decrease cervical pain < 5/10 with activity Goal to be met by: 04/23/19 (5 today,4 two sessions ago) Progress towards Goal:: Met Goal #3: Improve cervical ROM WFL's Goal to be met by: 04/23/19 Progress towards Goal:: Met Goal #4: pt with decreased muscle tightness R upper trap Goal to be met by: 04/23/19 Progress towards Goal:: Progressing Senior Living Goals Goal #1: pt with no radicular symptoms noted in RUE Goal to be met by: 05/07/19 Progress towards goal: Partially Met (none today) Goal #2: pt able to sleep > 4 hours uninterrupted by pain Goal to be met by: 05/07/19 Progress towards goal: Met Goal #3: Decrease cervical pain < 3/10 Goal to be met by: 05/07/19 Progress towards goal: Partially Met (no pain today) Goal #4: pt able to perform normal daily activities with less pain Goal to be met by: 05/07/19 Progress towards goal: Partially Met Plan Dates of Senior Living Goals: 05/07/19 Expiration date of current Insurance Approval:: 05/07/19 PLAN: Cont. skilled PT to elimiate cervical pain.Initiate D/C plan this week.
--- NOTE | 2019-05-04 10:51 | RS.CXNS ---
Date of scheduled appointment: 05/04/19 Type: Cancel Reason for Cancel/NS: Called in to work.
--- NOTE | 2019-05-06 15:05 | RS.CXNS ---
Date of scheduled appointment: 05/06/19 Type: No Show Reason for Cancel/NS: Unknown,current PT order expires tomorrow , 05/07/19.
== END 2019-05-08 23:59 ==
PROVIDERS: ATTEND Internal Medicine Rheumatology
DX: M43.9 Deforming dorsopathy, unspecified (principal); M47.9 Spondylosis, unspecified